=== PATIENT | male | born 1960 | race Caucasian/White ===

== ENCOUNTER 2021-09-01 16:34 | Emergency (ER) | payer BC ==
[2021-09-01 17:14] VITALS: BP 142/75
[2021-09-01 18:07] VITALS: PULSE 80
--- NOTE | 2021-09-01 18:44 | EDM.PDOC ---
ED HPI GENERAL MEDICAL PROBLEM - General Chief Complaint: General Stated Complaint: SHAKY, WEAK, THIGH PAIN BOTH LEGS Time Seen by Provider: 09/01/21 18:20 Source of Information: Reports: Patient History Limitations: Reports: No Limitations - History of Present Illness INITIAL COMMENTS - FREE TEXT/NARRATIVE: 60-year-old male, unvaccinated for Covid, was exposed to a lot of people over [place] and since that time he has had decreased appetite, weakness, generalized muscle pain, headaches, and had one episode of syncope where he bumped his head and scraped his right knee. He is having sharp pains in his arms and legs and thinks he is having intermittent fevers with cough and shortness of breath. He came in mainly wondering if he has Covid. His vitals are stable, he seems very anxious. Onset: Gradual Duration: Day(s): (Symptoms for the last 5 or 6 days) Associated Symptoms: Reports: Cough, Fever/Chills, Headaches, Malaise, Nausea/Vomiting, Shortness of Breath, Weakness. Denies: Confusion, Chest Pain - Related Data Allergies Allergy/AdvReac Type Severity Reaction Status Date / Time aspirin AdvReac Intermediate ear pain Verified 09/01/21 17:58 Home Meds: Home Meds Aspirin [Children's Aspirin] 81 mg PO DAILY 08/01/16 [History] Lisinopril/Hydrochlorothiazide [Lisinopril-Hctz 20-25 mg Tab] 1 tab PO DAILY 08/01/16 [History] atenoloL [Atenolol] 25 mg PO DAILY 08/01/16 [History] Acetaminophen/HYDROcodone [HYDROcodone-Acetaminophen 5-325 MG *] 1 - 2 tab PO Q6H PRN #0 tablet 08/05/16 [Rx] Lisinopril [Prinivil] 20 mg PO BEDTIME tablet 08/05/16 [Rx] Hydrochlorothiazide 25 mg PO DAILY PRN 09/01/21 [History] Past Medical History HEENT History: Reports: Impaired Vision Cardiovascular History: Reports: Hypertension Respiratory History: Reports: None Gastrointestinal History: Reports: Other (See Below) Genitourinary History: Reports: Renal Calculus Musculoskeletal History: Reports: Other (See Below) Neurological History: Reports: None Endocrine/Metabolic History: Reports: None Oncologic (Cancer) History: Reports: None Dermatologic History: Reports: Other (See Below) Other Dermatologic History: see below insect bite - Infectious Disease History Infectious Disease History: Reports: MRSA Other Infectious Disease History: 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 Took course of antibiotic therapy for this. - Past Surgical History Cardiovascular Surgical History: Reports: None Respiratory Surgical History: Reports: None GI Surgical History: Reports: Appendectomy Other Musculoskeletal Surgeries/Procedures:: C5 and C6 have bulging discs Dermatological Surgical History: Reports: Other (See Below) Social & Family History - Tobacco Use Tobacco Use Status *Q: Never Tobacco User - Caffeine Use Caffeine Use: Reports: Soda - Recreational Drug Use Recreational Drug Use: No - Living Situation & Occupation Living situation: Reports: , with Spouse Occupation: Employed ED ROS GENERAL - Review of Systems Review Of Systems: See Below Constitutional: Reports: Fever, Chills, Malaise, Decreased Appetite HEENT: Reports: Other (Throat is dry) Respiratory: Reports: Shortness of Breath, Cough. Denies: Sputum Cardiovascular: Denies: Chest Pain GI/Abdominal: Reports: Nausea, Vomiting. Denies: Abdominal Pain : Reports: No Symptoms Musculoskeletal: Reports: Arm Pain ( bilateral arm pain), Leg Pain (Bilateral leg pain) Skin: Reports: Other (Abrasion on his right knee and small abrasion on his right forehead) Neurological: Reports: Dizziness, Headache, Weakness Psychiatric: Reports: No Symptoms ED EXAM, GENERAL - Physical Exam Exam: See Below Exam Limited By: No Limitations General Appearance: Alert, No Apparent Distress, Anxious Eye Exam: Bilateral Eye: Normal Inspection (No jaundice) Head: Other (Small abrasion on the right forehead, otherwise no traumatic findings) Neck: Non-Tender Respiratory/Chest: No Respiratory Distress, Lungs Clear Cardiovascular: Regular Rate, Rhythm. No: Tachycardia GI/Abdominal: Soft, Non-Tender Extremities: Other (Superficial abrasion on the right knee with some surrounding swelling, no bony tenderness) Course - Vital Signs Last Recorded V/S: Last Vital Signs Temp 98.2 F 09/01/21 18:06 Pulse 80 09/01/21 18:06 Resp 18 09/01/21 18:06 BP 142/75 H 09/01/21 18:06 Pulse Ox 92 L 09/01/21 18:06 - Orders/Labs/Meds Orders: Active Orders 24 hr Category Date Time Status Isolation [COMM] Stat Oth 09/01/21 16:42 Ordered Labs: Laboratory Tests 09/01/21 Range/Units 18:09 Influenza Type A RNA Negative (NEGATIVE) RSV RNA ([facility]) Negative (NEGATIVE) Influenza Type B RNA Negative (NEGATIVE) SARS-CoV-2 RNA ([facility]) Positive H (NEGATIVE) - Re-Assessments/Exams Free Text/Narrative Re-Assessment/Exam: 09/01/21 18:43 4 Plex viral study was obtained and is pending. 09/01/21 19:34 Covid was positive, the result was given to the patient. He does not qualify for antibiotic treatment at this time, he was encouraged to rest, get fluids and increase activity as tolerated. He can return if he develops more difficulty breathing. 09/01/21 21:03 Patient was also given some Tessalon Perles, #15, to take 1-2 every 6-8 hours for cough suppression. Departure - Departure Time of Disposition: 19:36 Disposition: Home, Self-Care 01 Clinical Impression: COVID-19 - Discharge Information Instructions: COVID-19 Frequently Asked Questions, COVID-19, COVID-19 Vaccine Information, COVID-19: What to Do If You Are Sick- CDC (11/13/2020) Referrals: Karlene Mccain MD [Primary Care Provider] - Forms: ED Department Discharge Care Plan Goals: Rest, fluids, increase activity as tolerated and you should remain isolated probably for another 5 days. Return for recheck if you have more difficulty breathing and increased shortness of breath. Sepsis Event Note (ED) - Evaluation Sepsis Screening Result: No Definite Risk - Focused Exam Vital Signs: Vital Signs Temp Pulse Resp BP Pulse Ox 09/01/21 18:06 98.2 F 80 18 142/75 H 92 L 09/01/21 17:12 98.2 F 88 18 142/75 H
[2021-09-01 19:30] LABS: CORONAVIRUS COVID-19 NAA POSITIVE (NEGATIVE)
== END 2021-09-01 19:43 | disposition home or self-care (01) ==
LOC: JP.ED 16:34
DX: U07.1 COVID-19 (principal); S80.211A Abrasion, right knee, initial encounter; I10 Essential (primary) hypertension; Z88.8 Allergy status to other drugs, medicaments and biological substances; Z79.82 Long term (current) use of aspirin; Z79.899 Other long term (current) drug therapy; W22.8XXA Striking against or struck by other objects, initial encounter
CPT/HCPCS: 0241U; 99284

== ENCOUNTER 2021-10-24 09:47 | Day surgery (SDC) | payer BC ==
[~2021-10-24 09:47] MED LIST: Propofol 200 MG/20 ML SDV ONE
[2021-10-24] MEDS ORDERED: Sodium Chloride 0.9% 1,000 ML IV SCH (10:15)
[2021-10-24 10:40] LABS: CORONAVIRUS COVID-19 NAA NEGATIVE (NEGATIVE)
[2021-10-24] MEDS ORDERED: Midazolam 1 MG/ML 2 ML SDV ONE (11:02)
[2021-10-24] MEDS ORDERED: fentaNYL 100 MCG/2 ML SDV ONE (11:02)
[2021-10-24 13:13] VITALS: BP 131/75; PULSE 59
== END 2021-10-24 13:40 | disposition home or self-care (01) ==
LOC: JP.SDS 09:47
PROVIDERS: ATTEND Surgery
DX: Z12.11 Encounter for screening for malignant neoplasm of colon (principal); K63.5 Polyp of colon; I10 Essential (primary) hypertension; G47.33 Obstructive sleep apnea (adult) (pediatric); E66.9 Obesity, unspecified; Z80.0 Family history of malignant neoplasm of digestive organs; Z01.812 Encounter for preprocedural laboratory examination; Z20.822 Contact with and (suspected) exposure to COVID-19
CPT/HCPCS: 0241U; J2250; J2704; J3010; J7030